=== PATIENT | female | born 2000 | race American Indian/Alaskan Native ===

== ENCOUNTER 2021-12-10 21:44 | Emergency (ER) | payer MEDICAID ==
[2021-12-11 03:15] VITALS: BP 139/82
[2021-12-11] MEDS ORDERED: ASPIRIN 325 MG TAB PO ONE (03:41)
[2021-12-11] MEDS ORDERED: ACETAMINOPHEN 500 MG TAB PO ONE (03:41)
--- NOTE | 2021-12-11 04:05 | XRay Report ---
CHEST 1 VIEW 12/11/2021 2:57 AM INDICATION / CLINICAL INFORMATION: CHEST PAIN. COMPARISON: None available. FINDINGS: SUPPORT DEVICES: None. HEART / MEDIASTINUM: No significant abnormality. LUNGS / PLEURA: No significant pulmonary or pleural abnormality. No pneumothorax. ADDITIONAL FINDINGS: No significant additional findings. IMPRESSION: 1. No acute findings. Signer Name: Med Valente DO Signed: 12/11/2021 4:01 AM Workstation Name: [id number]
[2021-12-11 04:22] LABS: Basophils % (Auto) 0.2 % (0.0-1.8); Eosinophils # (Auto) 0.1 K/mm3 (0.0-0.4); Hematocrit 38.4 % (30.3-42.9); Lymphocytes # (Auto) 2.1 K/mm3 (1.2-5.4); Lymphocytes % (Auto) 48.9 % (13.4-35.0); Mean Corpuscular HGB Conc 31 % (30-34); Mean Corpuscular Volume 81 fl (79-97); Monocytes # (Auto) 0.5 K/mm3 (0.0-0.8); Monocytes % (Auto) 11.9 % (0.0-7.3); Platelet Count 304 K/mm3 (140-440); Red Blood Count 4.76 M/mm3 (3.65-5.03); Red Cell Distribution Width 17.3 % (13.2-15.2)
[2021-12-11 04:40] LABS: Alanine Aminotransferase 8 units/L (7-56); Blood Urea Nitrogen 7 mg/dL (7-17); Hemolysis Index 2
[2021-12-11 05:01] LABS: BUN/Creatinine Ratio 14
--- NOTE | 2021-12-11 06:36 | Emergency Department Report ---
ED General Adult HPI - General Chief complaint: Skin/Abscess/Foreign Body Stated complaint: CHEST PAIN/ABD PAIN Source: patient Mode of arrival: Ambulatory Limitations: No Limitations - History of Present Illness Initial comments: Patient is a 21-year-old -Portuguese female with no past medical history presents to the ED with complaint of acute onset persistent intermittent chest pain for the last 2 days and diffuse suprapubic pressure and pain. Patient states that she suspect that the lower abdominal pain may be due to her her menstrual cycle that is about to begin. Patient also complains of left mandibular premolar and molar tooth ache with lymph node pain for the last 1 week. Patient denies shortness of breath, cough, fall, heavy lifting, nausea and vomiting, nasal and sinus congestion, sore throat, back pain, fever and chills or diarrhea, dysuria and urinary frequency and urgency. MD Complaint: chest pain, lower abdomen, suspected dysmenorrhea -: Sudden, days(s) Location: chest (Diffuse chest pain), abdomen (Suprapubic area) Severity scale (0 -10): 4 Quality: aching, sharp Consistency: intermittent Improves with: none Worsens with: movement Associated Symptoms: denies other symptoms, chest pain (Diffuse chest pain). denies: confusion, cough, diaphoresis, fever/chills, headaches, loss of appetite, malaise, nausea/vomiting, rash, seizure, shortness of breath, syncope, weakness Treatments Prior to Arrival: none - Related Data Previous Rx's Medication Instructions Recorded Last Taken Type Metoclopramide [Reglan] 10 mg PO TID PRN #60 tab 06/24/18 Unknown Rx 21/Iron Fu/Folic Acid 1 each PO DAILY #30 tablet 06/24/18 Unknown Rx [ Complete Caplet] Clindamycin [Clindamycin CAP] 300 mg PO Q8H #30 cap 12/11/21 Unknown Rx Naproxen 500 mg PO Q12H PRN #30 tab 12/11/21 Unknown Rx traMADoL [Ultram] 50 mg PO Q6HR PRN #12 tablet 12/11/21 Unknown Rx Allergies Allergy/AdvReac Type Severity Reaction Status Date / Time No Known Allergies Allergy Unverified 06/24/18 15:25 ED Review of Systems ROS: Stated complaint: CHEST PAIN/ABD PAIN Other details as noted in HPI Constitutional: denies: chills, fever Eyes: denies: eye pain, eye discharge, vision change ENT: dental pain (Left mandibular premolar and molar toothache). denies: ear pain, throat pain Respiratory: denies: cough, shortness of breath, wheezing Cardiovascular: chest pain (Diffuse chest pain). denies: palpitations Endocrine: no symptoms reported Gastrointestinal: abdominal pain (Suprapubic pressure). denies: nausea, vomiting, diarrhea Genitourinary: denies: urgency, dysuria, discharge Musculoskeletal: denies: back pain, joint swelling, arthralgia Skin: denies: rash, lesions Neurological: denies: headache, weakness, paresthesias Psychiatric: denies: anxiety, depression Hematological/Lymphatic: denies: easy bleeding, easy bruising ED Past Medical Hx - Social History Smoking Status: Never Smoker Substance Use Type: None - Medications Home Medications: Home Medications Medication Instructions Recorded Confirmed Last Taken Type Metoclopramide [Reglan] 10 mg PO TID PRN #60 tab 06/24/18 Unknown Rx 21/Iron Fu/Folic Acid 1 each PO DAILY #30 tablet 06/24/18 Unknown Rx [ Complete Caplet] Clindamycin [Clindamycin CAP] 300 mg PO Q8H #30 cap 12/11/21 Unknown Rx Naproxen 500 mg PO Q12H PRN #30 tab 12/11/21 Unknown Rx traMADoL [Ultram] 50 mg PO Q6HR PRN #12 tablet 12/11/21 Unknown Rx ED Physical Exam - General Limitations: No Limitations General appearance: alert, in no apparent distress - Head Head exam: Present: atraumatic, normocephalic, normal inspection - Eye Eye exam: Present: normal appearance, PERRL, EOMI Pupils: Present: normal accommodation - ENT ENT exam: Present: normal exam, mucous membranes moist, TM's normal bilaterally, normal external ear exam, other (Swollen, tender left mandibular gingiva; tender left mandibular premolar and molar teeth) - Neck Neck exam: Present: normal inspection, full ROM, lymphadenopathy (Anterior left lymphadenopathy). Absent: tenderness - Respiratory Respiratory exam: Present: normal lung sounds bilaterally, chest wall tenderness (Palpable reproducible diffuse chest wall tenderness). Absent: respiratory distress, wheezes, rales, rhonchi, accessory muscle use, decreased breath sounds, prolonged expiratory - Cardiovascular Cardiovascular Exam: Present: regular rate, normal rhythm, normal heart sounds. Absent: systolic murmur, diastolic murmur, rubs, gallop - GI/Abdominal GI/Abdominal exam: Present: soft, normal bowel sounds. Absent: distended, tenderness, guarding, rebound, hyperactive bowel sounds, hypoactive bowel sounds, organomegaly - Extremities Exam Extremities exam: Present: normal inspection, full ROM, normal capillary refill. Absent: tenderness - Back Exam Back exam: Present: normal inspection, full ROM. Absent: tenderness, CVA tenderness (R), CVA tenderness (L), muscle spasm, paraspinal tenderness, vertebral tenderness - Neurological Exam Neurological exam: Present: alert, oriented X3, CN II-XII intact, normal gait, reflexes normal - Psychiatric Psychiatric exam: Present: normal affect, normal mood, anxious - Skin Skin exam: Present: warm, dry, intact, normal color. Absent: rash ED Course Vital Signs 12/10/21 12/11/21 12/11/21 21:46 03:13 05:41 Temperature 98.4 F Pulse Rate 63 62 Respiratory 12 16 Rate Blood Pressure 125/80 Blood Pressure 139/82 [Left] O2 Sat by Pulse 100 98 96 Oximetry ED Medical Decision Making - Lab Data Result diagrams: 12/11/21 03:48 12/11/21 03:48 - EKG Data 12/11/21 06:37 EKG shows normal sinus rhythm with a ventricular rate of [address] or T wave abnormalities. - Radiology Data Radiology results: report reviewed, image reviewed [address] [address] XRay Report Signed Patient: JOHNATHON MONTERO MR#: [id number] : 2000 Acct:[id number] Age/Sex: 21 / F ADM Date: 12/10/21 Loc: ED Attending Dr: Ordering Physician: YOLI NICHOLE Date of Service: 12/11/21 Procedure(s): XR chest 1V ap Accession Number(s): [id number] cc: YOLI NICHOLE Fluoro Time In Minutes: CHEST 1 VIEW 12/11/2021 2:57 AM INDICATION / CLINICAL INFORMATION: CHEST PAIN. COMPARISON: None available. FINDINGS: SUPPORT DEVICES: None. HEART / MEDIASTINUM: No significant abnormality. LUNGS / PLEURA: No significant pulmonary or pleural abnormality. No pneumothorax. ADDITIONAL FINDINGS: No significant additional findings. IMPRESSION: 1. No acute findings. Signer Name: Med Valente DO Signed: 12/11/2021 4:01 AM Workstation Name: [id number] Transcribed By: LACEY Dictated By: MED VALENTE DO Electronically Authenticated By: MED VALENTE DO Signed Date/Time: 12/11/21400 DD/ 9 TD/TT: - Medical Decision Making This is a 21-year-old -Portuguese female with no past medical history presents to the ED with complaint of acute onset persistent intermittent chest pain for the last 2 days and diffuse suprapubic pressure and pain. Patient states that she suspect that the lower abdominal pain may be due to her her menstrual cycle that is about to begin. Patient also complains of left mandibular premolar molar toothache with swollen gum for 1 week. In the ED, patient is alert and oriented x3 and is not in any distress. EKG shows normal sinus rhythm with a ventricular rate of [address] or T wave abnormalities. Chest x-ray showed no acute cardiopulmonary abnormalities or pneumonitis. All lab test results were reviewed and are all nonactionable. Patient's heart score is 0 and patient is PERC negative per Wells criteria. Patient was discharged home on medications and advised to follow-up with her primary care physician in 7 to 10 days for reevaluation. Patient advised return to the ED immediately if symptoms get worse. - Differential Diagnosis PE; pneumonia; ACS; dental abscess; costochondritis; muscle strain Critical care attestation.: If time is entered above; I have spent that time in minutes in the direct care of this critically ill patient, excluding procedure time. ED Disposition Clinical Impression: Acute costochondritis, Acute nonspecific chest pain with low risk of coronary artery disease, Dental abscess, Acute gingivitis, Primary dysmenorrhea Disposition: HOME / SELF CARE / HOMELESS Is pt being admited?: No Does the pt Need Aspirin: No Condition: Stable Instructions: Chest Pain (ED), Nonspecific Chest Pain, Adult, Acyv-qs-Gyno, Costochondritis, [id number], Dental Abscess, Xsrr-vn-Lyob, Chest Wall Pain, Qbra-uk-Wmig, Dysmenorrhea, Nqwz-vi-Yrzh, Trench Mouth Additional Instructions: Take medication with food, drink plenty of fluids and follow-up with your primary care physician in 7 to 10 days for reevaluation. Return to the ED immediately if symptoms get worse. Prescriptions: Clindamycin [Clindamycin CAP] 300 mg PO Q8H #30 cap Naproxen 500 mg PO Q12H PRN #30 tab PRN Reason: Pain , Severe (7-10) traMADoL [Ultram] 50 mg PO Q6HR PRN #12 tablet PRN Reason: Pain Referrals: [facility] [Provider Group] - 7-10 days Forms: Work/School Release Form(ED) Time of Disposition: 06:39 Print Language: VIETNAMESE
--- NOTE | 2021-12-11 09:47 | Electrocardiograph Report ---
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
== END 2021-12-11 07:10 | disposition home or self-care (01) ==
LOC: ED 21:44
DX: M94.0 Chondrocostal junction syndrome [Tietze] (principal); K04.7 Periapical abscess without sinus; K05.00 Acute gingivitis, plaque induced; N94.6 Dysmenorrhea, unspecified; Z79.899 Other long term (current) drug therapy
CPT/HCPCS: 36415; 71045; 80053; 84484; 85025; 93005; 99284